=== PATIENT | female | born 1970 ===

== ENCOUNTER 2017-10-05 15:02 | Emergency (ER) | payer BC ==
[2017-10-05 15:23] VITALS: BP 118/75
--- NOTE | 2017-10-05 16:06 | UC ---
Abdominal Pain Female HPI - HPI Summary HPI Summary: This is iris Haddad documenting for attending Maddison Givens MD. This patient is a 47 year old F presenting to [facility] with a chief complaint of epigastric pain since 03:30 this morning. The patient notes that the pain woke her up. The patient reports nausea and vomiting after eating. The patient rates the pain 6/10 in severity. Symptoms aggravated by food. Symptoms alleviated by nothing. Patient reports diarrhea last week but notes that it has resolved. Patient denies taking any medications for the pain. - History of Current Complaint Chief Complaint: UCGI Stated Complaint: STOMACHE PAIN,NAUSEA,VOMITING Time Seen by Provider: 10/05/17 15:54 Hx Obtained From: Patient Hx Last Menstrual Period: NA Onset/Duration: Sudden Onset, Lasting Hours, Still Present Timing: Constant Severity Initially: Mild Severity Currently: Mild Pain Intensity: 6 Pain Scale Used: 0-10 Numeric Location: Epigastric Aggravating Factor(s): Food Alleviating Factor(s): Nothing Associated Signs and Symptoms: Positive: Nausea, Vomiting, Diarrhea Allergies/Adverse Reactions: Allergies Allergy/AdvReac Type Severity Reaction Status Date / Time No Known Allergies Allergy Verified 10/05/17 15:23 Home Medications: Home Medications NK [No Home Medications Reported] 10/05/17 [History Confirmed 10/05/17] PMH/Surg Hx/FS Hx/Imm Hx Previously Healthy: Yes - Surgical History Surgical History: None - Family History Known Family History: Positive: Hypertension, Diabetes - Social History Occupation: Employed Part-time Alcohol Use: Rare Substance Use Type: None Smoking Status (MU): Never Smoked Tobacco Review of Systems Constitutional: Negative - negative fever Respiratory: Negative - negative cough Gastrointestinal: Abdominal Pain, Vomiting, Diarrhea, Nausea Neurological: Negative - negative headache All Other Systems Reviewed And Are Negative: Yes Physical Exam Vital Signs: Initial Vital Signs Temp 98.3 F 10/05/17 15:16 Pulse 45 10/05/17 15:16 Resp 20 10/05/17 15:16 BP 118/75 10/05/17 15:16 Pulse Ox 99 10/05/17 15:16 Abd Pain Female Course/Dx - Differential Dx/Diagnosis Provider Diagnoses: abdominal pain Discharge - Sign-Out/Discharge Documenting (check all that apply): Patient Departure - Discharge Plan Condition: Stable Disposition: HOME-RECOMMEND TO ED Patient Education Materials: Dehydration (ED), Acute Abdominal Pain (ED) Referrals: Roselia Hanna MD [Primary Care Provider] - Additional Instructions: The doctor that evaluated you today recommends you go directly to the emergency for further evaluation and treatment of your abdominal pain. This may include laboratory testing and imaging. It is recommended you go directly to the emergency department at [facility]. If your symptoms worsen or pain become uncontrolled or you have any other concerns - it is recommended you bone char puller and call 911.
== END 2017-10-05 16:15 | disposition home health service (06) ==
LOC: UCEAST 15:02
DX: R10.13 Epigastric pain (principal); R11.2 Nausea with vomiting, unspecified
CPT/HCPCS: 81003; 99212; G0463

== ENCOUNTER 2017-10-05 16:48 | Emergency (ER) | payer BC ==
[2017-10-05] MEDS ORDERED: Ondansetron INJ* 2 MG/ML VIAL IV ONE (17:20)
[2017-10-05 17:30] LABS: ABS Basophils 0.1 10^3/ul (0-0.2); ABS Eosinophils 0 10^3/ul (0-0.6); ABS Lymphocytes 1.2 10^3/ul (1.0-4.8); ABS Monocytes 0.3 10^3/ul (0-0.8); ABS Neutrophils 8.4 10^3/ul (1.5-7.7); ABS Nucleated RBC 0 10^3/ul; Eosinophil % 0.5 % (0-6); Hematocrit 40 % (35-47); Lymphocyte % 12.2 % (25-47); Mean Corpuscular HGB Conc 33 g/dl (31-36); Mean Corpuscular Hemoglobin 27 pg (27-31); Mean Corpuscular Volume 81 fL (80-97); Mean Platelet Volume 8.5 um3 (7.4-10.4); Nucleated Red Blood Cells % 0.1; Platelet Count 228 10^3/ul (150-450); Red Blood Count 4.91 10^6/ul (4.00-5.40); Red Cell Distribution Width 14 % (10.5-15); White Blood Count 10.1 10^3/ul (3.5-10.8)
[2017-10-05 17:48] LABS: EGFR Non-African American 110.5 (>60)
--- NOTE | 2017-10-05 17:58 | ED ---
GI/ HPI - HPI Summary HPI Summary: 47F presents with epigastric pain for the past day. It started after she had chicken for dinner. Her had the same thing and has no symptoms. This pain has happened before many years ago. She states the pain is a burning feeling. Does not radiate anywhere. Denies any chest pain or shortness breath. She admits to nausea and vomiting. No diarrhea or constipation. No pain with urination. No flank pain. No previous belly surgeries. No abnormal vaginal discharge. She does have hugo shoulder she claims from rubbing a bennett on her shoulders to help with pain which it did not help. States pain is worse when she lays down. She states that she feels safe at home and denies any abuse. - History of Current Complaint Chief Complaint: EDAbdPain Time Seen by Provider: 10/05/17 17:13 Stated Complaint: ABD PAIN-SENT FROM [facility] Hx Last Menstrual Period: NA Pain Intensity: 6 - Allergy/Home Medications Allergies/Adverse Reactions: Allergies Allergy/AdvReac Type Severity Reaction Status Date / Time No Known Allergies Allergy Verified 10/05/17 15:23 PMH/Surg Hx/FS Hx/Imm Hx Endocrine/Hematology History: Denies: Hx Diabetes, Hx Thyroid Disease Cardiovascular History: Denies: Hx Hypertension Respiratory History: Denies: Hx Asthma, Hx Chronic Obstructive Pulmonary Disease (COPD) GI History: Denies: Hx Ulcer Infectious Disease History: No Infectious Disease History: Denies: Hx Hepatitis, Hx Human Immunodeficiency Virus (HIV), Traveled Outside the [place] in Last 30 Days - Family History Known Family History: Positive: Hypertension, Diabetes - Social History Alcohol Use: Rare Substance Use Type: Reports: None Smoking Status (MU): Never Smoked Tobacco Review of Systems Negative: Fever Negative: Chest Pain Negative: Shortness Of Breath Positive: Abdominal Pain, Vomiting, Nausea. Negative: Diarrhea All Other Systems Reviewed And Are Negative: Yes Physical Exam Triage Information Reviewed: Yes Vital Signs On Initial Exam: Initial Vitals Temp Pulse Resp BP Pulse Ox 98.0 F 56 16 119/74 99 10/05/17 16:50 10/05/17 16:50 10/05/17 16:50 10/05/17 16:50 10/05/17 16:50 Vital Signs Reviewed: Yes Appearance: Positive: Well-Appearing Skin: Positive: Warm, Dry Head/Face: Positive: Normal Head/Face Inspection Eyes: Positive: Normal, Conjunctiva Clear ENT: Positive: Pharynx normal Respiratory/Lung Sounds: Positive: Clear to Auscultation, Breath Sounds Present Cardiovascular: Positive: Normal, RRR Abdomen Description: Positive: Soft, Other: - tenderness epigastric pain, neg knox Bowel Sounds: Positive: Present Musculoskeletal: Positive: Normal Neurological: Positive: Normal Psychiatric: Positive: Normal Diagnostics - Vital Signs Vital Signs Temp Pulse Resp BP Pulse Ox 10/05/17 16:50 98.0 F 56 16 119/74 99 - Laboratory Lab Results: Lab Results 10/05/17 10/05/17 10/05/17 Range/Units 17:21 17:21 17:21 WBC 10.1 (3.5-10.8) 10^3/ul RBC 4.91 (4.00-5.40) 10^6/ul Hgb 13.0 (12.0-16.0) g/dl Hct 40 (35-47) % MCV 81 (80-97) fL MCH 27 (27-31) pg MCHC 33 (31-36) g/dl RDW 14 (10.5-15) % Plt Count 228 (150-450) 10^3/ul MPV 8.5 (7.4-10.4) um3 Neut % (Auto) 83.5 H (38-83) % Lymph % (Auto) 12.2 L (25-47) % [place] % (Auto) 3.3 (0-7) % Eos % (Auto) 0.5 (0-6) % Baso % (Auto) 0.5 (0-2) % Absolute Neuts (auto) 8.4 H (1.5-7.7) 10^3/ul Absolute Lymphs (auto) 1.2 (1.0-4.8) 10^3/ul Absolute Monos (auto) 0.3 (0-0.8) 10^3/ul Absolute Eos (auto) 0 (0-0.6) 10^3/ul Absolute Basos (auto) 0.1 (0-0.2) 10^3/ul Absolute Nucleated RBC 0 10^3/ul Nucleated RBC % 0.1 Sodium 138 (135-145) mmol/L Potassium 4.0 (3.5-5.0) mmol/L Chloride 104 (101-111) mmol/L Carbon Dioxide 24 (22-32) mmol/L Anion Gap 10 (2-11) mmol/L BUN 21 (6-24) mg/dL Creatinine 0.58 (0.51-0.95) mg/dL Est GFR ( Amer) 133.7 (>60) Est GFR (Non-Af Amer) 110.5 (>60) BUN/Creatinine Ratio 36.2 H (8-20) Glucose 99 (70-100) mg/dL Lactic Acid 0.6 (0.5-2.0) mmol/L Calcium 9.8 (8.6-10.3) mg/dL Total Bilirubin 0.50 (0.2-1.0) mg/dL AST 16 (13-39) U/L ALT 12 (7-52) U/L Alkaline Phosphatase 47 (34-104) U/L C-Reactive Protein 4.31 (<8.01) mg/L Total Protein 8.6 (6.4-8.9) g/dL Albumin 4.5 (3.2-5.2) g/dL Globulin 4.1 H (2-4) g/dL Albumin/Globulin Ratio 1.1 (1-3) Lipase 15 (11.0-82.0) U/L Beta HCG, Quant 5.62 mIU/mL Result Diagrams: 10/05/17 17:21 18 17:21 Lab Statement: Any lab studies that have been ordered have been reviewed, and results considered in the medical decision making process. - Ultrasound No standard instances Ultrasound Interpretation: No Acute Changes Ultrasound Interpretation Completed By: Radiologist KELLY Course/Dx - Course Course Of Treatment: 47F presents with epigastric pain for the past day. It started after she had chicken for dinner. Her had the same thing and has no symptoms. This pain has happened before many years ago. She states the pain is a burning feeling. Does not radiate anywhere. Denies any chest pain or shortness breath. She admits to nausea and vomiting. No diarrhea or constipation. No pain with urination. No flank pain. No previous belly surgeries. No abnormal vaginal discharge. She does have hugo shoulder she claims from rubbing a bennett on her shoulders to help with pain which it did not help. States pain is worse when she lays down. On exam tenderness epigastric region. Negative Knox's. Gallbladder ultrasound normal. Labs within normal limits. CRP normal. Likely a gastritis. We'll treat with omeprazole. Patient understands agrees with plan. - Diagnoses Differential Diagnoses - Female: Cholelithiasis, Cholecystitis, Gastritis Provider Diagnoses: Abdominal pain Discharge - Sign-Out/Discharge Documenting (check all that apply): Patient Departure - Discharge Plan Condition: Good Disposition: HOME Prescriptions: Omeprazole CAP* [Prilosec CAP* 20 MG] 20 mg PO DAILY #14 cap.dr Ondansetron ODT TAB* [Zofran 4 MG Odt TAB*] 4 mg PO Q6H PRN #16 tab.odt PRN Reason: Nausea Patient Education Materials: Epigastric Pain (ED) Referrals: Roselia Hanna MD [Primary Care Provider] - Additional Instructions: Take omeprazole once a day for 14 days take zofran every 6 hours as needed for nausea Avoid acidic foods Elevated head of bed Stay upright for at least 30 mins after eating Follow up with primary within 5 days, may need to follow up with GI in the future Return to ED if develop fever, blood in stool, or severe nausea and vomiting or any new or worsening symptoms - Billing Disposition and Condition Condition: GOOD Disposition: Home
[2017-10-05] MEDS ORDERED: Al Hydrox/Mg Hydrox/Simet LIQ* 30 ML UDC PO ONE (18:29)
[2017-10-05] MEDS ORDERED: Lidocaine 2% VISCOUS* 15 ML UDC PO ONE (18:29)
--- NOTE | 2017-10-05 18:47 | RAD ---
INDICATION: Right upper quadrant pain COMPARISON: None TECHNIQUE: Longitudinal and transverse scans of the right upper quadrant were obtained. Doppler interrogation of the hepatic and portal venous system was performed. FINDINGS: Liver: The liver is normal in size and echogenicity. There are no focal masses. The liver measures 14.7 cm in cephalocaudal dimension. Vessels: There is normal hepatic and portal venous flow. Bile ducts: There is no evidence of intrahepatic or extrahepatic ductal dilatation. The common duct measures 0.2 cm. Gallbladder: The sonographic appearance of the gallbladder is normal. There is no evidence of cholelithiasis, thickening of the gallbladder wall, or pericholecystic fluid. Pancreas: The visualized pancreas appears normal Right kidney: The right kidney is normal in size and echogenicity. There are no masses or calculi. There is no evidence of hydronephrosis. The right kidney measures 9.0 x 3.7 x 4.3 cm. IVC and aorta: The aorta and superior vena cava appear normal. Fluid: There is no ascites. Other: None. IMPRESSION: NORMAL GALLBLADDER.
[2017-10-05 19:57] VITALS: BP 115/60
== END 2017-10-05 19:57 | disposition home or self-care (01) ==
LOC: ED 16:48
DX: R10.13 Epigastric pain (principal); R11.2 Nausea with vomiting, unspecified
CPT/HCPCS: 36415; 76705; 80053; 83605; 83690; 84702; 85025; 86140; 96374; 99282; A9270-GY; J2405